=== PATIENT | male | born 1960 | race Caucasian/White ===

== ENCOUNTER 2016-08-30 05:36 | Inpatient (IN) | END 2016-09-02 16:51 | disposition home or self-care (01) | DRG 519 | DX: M41.86 Other forms of scoliosis, lumbar region (principal); G97.41 Accidental puncture or laceration of dura during a procedure; I10 Essential (primary) hypertension; M51.17 Intervertebral disc disorders with radiculopathy, lumbosacral region; Y83.8 Other surgical procedures as the cause of abnormal reaction of the patient, or of later complication, without mention of misadventure at the time of the procedure; Y92.234 Operating room of hospital as the place of occurrence of the external cause ==